=== PATIENT | male | born 1955 | race Caucasian/White ===

== ENCOUNTER → 2020-02-01 11:43 | Outpatient (BNVA) | payer MEDICARE, OTHER, SELFPAY | PROVIDERS: Family Provider Family Medicine; PCP Family Medicine; Visit Provider Family Medicine | DX: I10 Essential (primary) hypertension (principal); E78.5 Hyperlipidemia, unspecified; E11.9 Type 2 diabetes mellitus without complications | CPT/HCPCS: 80053; 80061; 82043; 83036; 84443; 85025 ==

== ENCOUNTER → 2020-05-30 09:13 | Outpatient (BNVA) | payer MEDICARE, OTHER, SELFPAY | PROVIDERS: Family Provider Family Medicine; PCP Family Medicine; Visit Provider Family Medicine | DX: E11.9 Type 2 diabetes mellitus without complications (principal); N18.2 Chronic kidney disease, stage 2 (mild); I10 Essential (primary) hypertension; F17.229 Nicotine dependence, chewing tobacco, with unspecified nicotine-induced disorders | CPT/HCPCS: 80048; 83036 ==

== ENCOUNTER → 2020-12-29 11:41 | Outpatient (BNVA) | payer MEDICARE, OTHER, SELFPAY | PROVIDERS: Family Provider Family Medicine; PCP Family Medicine; Visit Provider Family Medicine | DX: I10 Essential (primary) hypertension (principal); E11.9 Type 2 diabetes mellitus without complications; E78.5 Hyperlipidemia, unspecified; N40.1 Benign prostatic hyperplasia with lower urinary tract symptoms; R35.0 Frequency of micturition; E03.9 Hypothyroidism, unspecified; K40.90 Unilateral inguinal hernia, without obstruction or gangrene, not specified as recurrent | CPT/HCPCS: 80053; 80061; 82043; 83036; 84153; 84443; 85025 ==

== ENCOUNTER → 2021-01-31 08:48 | Outpatient (BNVA) | payer MEDICARE, OTHER, SELFPAY | PROVIDERS: Family Provider Family Medicine; PCP Family Medicine; Visit Provider Urology | DX: N40.1 Benign prostatic hyperplasia with lower urinary tract symptoms (principal); R97.20 Elevated prostate specific antigen [PSA]; R35.0 Frequency of micturition; K40.90 Unilateral inguinal hernia, without obstruction or gangrene, not specified as recurrent | CPT/HCPCS: 81003; 84153 ==

== ENCOUNTER → 2021-02-09 10:38 | Outpatient (BNVA) | payer MEDICARE, OTHER, SELFPAY | PROVIDERS: Family Provider Family Medicine; PCP Family Medicine; Visit Provider Surgery | DX: Z20.822 Contact with and (suspected) exposure to COVID-19 (principal) | CPT/HCPCS: 87635 ==

== ENCOUNTER 2021-02-14 08:15 | Day surgery (SDC) | payer MEDICARE, OTHER, SELFPAY ==
[2021-02-13 09:27] VITALS: BMI 29.3
--- NOTE | 2021-02-14 08:38 | W.PM.OPSFHP ---
Same Day Surgery H&P Indication for Procedure/HPI DATE OF PROCEDURE: February 14, 2021 CHIEF COMPLAINT/INDICATIONFOR SURGICAL PROCEDURE: left inguinal hernia repair PREOP DIAGNOSIS: left inguinal hernia PLANNED PROCEDRUE: Operation Date: 02/14/21 09:35 Proposed Procedures p Laparoscopic poss Open Inguinal Hernia Repair 98141 K40.90(Left) - Jc Samuel MD s Open Umbilical Hernia Repair 42650 K42.0(Not Applicable) - Jc Samuel MD Medications/Allergies* Allergies/Adverse Reactions Allergy/AdvReac Type Severity Reaction Status Date / Time No Known Allergies Allergy Verified 02/13/21 09:23 Pertinent History/Comorbid Conditions* Medical History (Updated 01/31/21 @ 09:38 by Gale Medina APRN) Dyslipidemia Elevated PSA Essential hypertension Hypothyroid Type 2 diabetes mellitus, without long-term current use of insulin Surgical History (Updated 01/16/21 @ 11:23 by Jc Samuel MD) H/O hemorrhoidectomy History of colonoscopy Family History (Updated 02/01/20 @ 11:25 by Starr Hernandez LPN) Diabetes Hypertension Social History Alcohol intake: never Marital status: Current occupational status: employed Current occupation: SELF EMPLOYED Pertinent Exam Findings alert, oriented x 3 and regular rate & rhythm Recommendations Surgery/Procedure today Coding Level of Care Code Acute Biomedical Engineering Director for Manuel Lantigua
[2021-02-14 08:40] VITALS: BP 134/88; PULSE 56; RESP 16; TEMP 36.4; O2SAT 100
[2021-02-14] MEDS: sodium chloride 0.9% 1,000 ML 30 ML IV (09:12)
[2021-02-14 09:17] LABS: Glucose Point of Care 113 mg/dL (70-110)
--- NOTE | 2021-02-14 09:19 | ANES.PREANE2 ---
Pre-Anesthetic Assessment Pre-Anesthetic Assessment: Height/Weight: Height 1.68 m Weight 82.554 kg Temp Pulse Resp BP Pulse Ox 97.6 F 56 L 16 134/88 100 02/14/21 08:40 02/14/21 08:40 02/14/21 08:40 02/14/21 08:40 02/14/21 08:40 Preop Diagnosis: Left inguinal hernia, umbilical hernia Proposed Procedure: Operation Date: 02/14/21 09:35 Proposed Procedures p Laparoscopic poss Open Inguinal Hernia Repair 28729 K40.90(Left) - Jc Samuel MD s Open Umbilical Hernia Repair 71506 K42.0(Not Applicable) - Jc Samuel MD Was Beta Jared taken within 24 hours: N/A Was Clonidine taken within 24 hours: N/A Last intake: Intake Last Liquid Date 02/13/21 Last Liquid Time 22:00 Last Solid Date 02/13/21 Last Solid Time 22:00 Social: Social History: Tobacco (Chews) and No alcohol Exam: Pre-Anes Outpt Exam: alert, oriented x 3, clear to auscultation bilaterally and regular rate & rhythm Airway: Submandibular: WNL Cervical ROM: WNL MP: 2 Dentition: Chipped CV/HEM: CV/HEM: HTN : : Chronic renal Insufficiency Metabolic: Metabolic: Hyperlipidemia and Thyroid Anesthetic Plan: ASA status: 3 Anesthesia: General Risk of > 500 ml blood loss (7ml/kg in children): No Meds/Allergies Current Medications: Current Medications Generic Name Dose Route Start Last Admin Trade Name Freq PRN Reason Stop Dose Admin Sodium Chloride 1,000 mls @ 30 ml s/hr 02/14/21 08:45 02/14/21 09:12 Sodium Chloride 0.9% IV 02/15/21 08:44 30 mls/hr .Q24H GARY Administration PFSH Anesthesia PFSH: Medical History Dyslipidemia Elevated PSA Essential hypertension Hypothyroid Type 2 diabetes mellitus, without long-term current use of insulin Surgical History H/O hemorrhoidectomy History of colonoscopy Family History Other Diabetes Hypertension Social History Alcohol intake: never Marital status: Current occupational status: employed Current occupation: SELF EMPLOYED Data Anesthesia Other Labs: Laboratory Results - last 48 hr 02/14/21 08:58 POC Glucose 113 H Cardiac Studies: No Data to Display
--- NOTE | 2021-02-14 10:48 | PM.OP ---
Operative Report Date of procedure: February 14, 2021 Pre-op Diagnosis: Left inguinal hernia, umbilical hernia Post-op Diagnosis: 1. Incarcerated indirect left inguinal hernia 2. Incarcerated umbilical hernia Procedure Done: 1. Open primary repair of umbilical hernia 2. Laparoscopic total extraperitoneal repair of indirect left inguinal hernia with Surgimax 3D mesh Pathology: none sent Surgeon: Jc Samuel Anesthesia: General Condition: stable Disposition: PACU Procedure: The patient was taken to the operating room. After IV antibiotic was administered, the abdomen was prepped and draped in a sterile manner. Using a 15 blade, a 1.0 cm transverse incision was made infraumbilically on the left side. Subcutaneous tissue was divided using electrocautery and the anterior rectus sheath divided using an 11 blade. The rectus muscle was retracted laterally and the extraperitoneal space identified. A 11 mm port was placed and 12 mm of pneumoperitoneum was created. A 10 mm 30? scope was introduced and the retrorectus space was opened using the camera up to the pubic symphysis and 5 mm ports were placed in the midline, one 2-fingerbreadths above the pubic symphysis and the other midway between these two ports under direct visualization. Blunt dissection was carried out to open up the tissue in the midline and to the pubic symphysis, which was identified. The dissection was then carried laterally where the iliopubic tract was identified. There was no femoral, obturator or direct hernia noted. The inferior epigastric artery was identified and dissection was carried posterior to it and laterally, the space was opened up to the level of the umbilicus superior to the anterior superior iliac spine. I then proceeded to dissect out the spermatic cord and the large indirect hernial sac was reduced . 15 x 10cm Surgimax 3D mesh was rolled and introduced through the 10 mm port and then rolled laterally and apposed well against the abdominal wall to cover the myopectineal orifice completely. 10 Cc of 0.5% Marcaine was infiltrated into the preperitoneal space. The extraperitoneal space was desufflated under direct visualization to ensure no slippage of hernial sac under the mesh. All ports were removed. Through the existing incision inferior to the umbilicus, hernial sac dissected out using electrocautery and hemostats. The hernial sac was opened and omentum was reduced into the peritoneal cavity. Interrupted sutures using 0 Vicryl was used to close the hernial defect without any tension. The anterior rectus fascia at the infraumbilical port closed using figure of eight 0 Vicryl sutures, subcutaneous tissue approximated using 3-0 Vicryl sutures and skin at all three port sites were closed using running subcuticular 4-0 Monocryl sutures and Dermabond. 10 mL of 0.5% Marcaine was infiltrated at the port sites. The patient was stable throughout the procedure.
[2021-02-14 10:58] VITALS: BP 136/86; PULSE 84; RESP 18; TEMP 36.4; O2SAT 97
[2021-02-14 11:05] VITALS: BP 128/68; PULSE 74; RESP 18; O2SAT 96
[2021-02-14 11:10] VITALS: BP 111/81; PULSE 62; RESP 16; TEMP 36.4; O2SAT 98
[2021-02-14 11:22] LABS: Glucose Point of Care 138 mg/dL (70-110)
[2021-02-14 11:23] VITALS: BP 118/72; PULSE 63; RESP 14; TEMP 36.4; O2SAT 99
[2021-02-14 12:02] VITALS: BP 131/81; PULSE 56; RESP 16; TEMP 36.6; O2SAT 99
[2021-02-14] MEDS: HYDROcodone-acetaminophen 5-325 mg Tablet 1 TAB PO (12:04)
--- NOTE | 2021-02-14 15:41 | ANE.PACU2 ---
Inpatient post-anesthesia follow up: Airway intact: Yes Vital signs: Temperature 97.8 F Pulse Rate 56 Respiratory Rate 16 Blood Pressure 131/81 Pulse Oximetry 99 Oxygen Delivery Me thod Room Air Oxygen Flow Rate 8 Fraction of Inspir ed Oxygen Hydration adequate: Yes Nausea and vomiting: No Pain level: 2 Mental status: Baseline
== END 2021-02-14 12:05 | disposition home or self-care (01) ==
PROVIDERS: PCP Family Medicine; Visit Provider Surgery
PROC: (CPT 49650; principal; 2021-02-14 09:25)
PROC: (CPT 49587; 2021-02-14 09:25)
DX: K40.30 Unilateral inguinal hernia, with obstruction, without gangrene, not specified as recurrent (principal); K42.0 Umbilical hernia with obstruction, without gangrene; E78.5 Hyperlipidemia, unspecified; I10 Essential (primary) hypertension; E03.9 Hypothyroidism, unspecified; E11.9 Type 2 diabetes mellitus without complications; Z82.49 Family history of ischemic heart disease and other diseases of the circulatory system; Z83.3 Family history of diabetes mellitus
CPT/HCPCS: 49587; 49650; 36416; 82962; C1781; J0690; J1100; J1170; J2405; J2704; J2710; J3010; J3490; J7030

== ENCOUNTER 2021-02-15 14:28 | Emergency (ER) | payer MEDICARE, OTHER, SELFPAY ==
[2021-02-15 14:54] VITALS: BP 137/70; PULSE 63; RESP 18; TEMP 36.8; O2SAT 96; BMI 28.1
--- NOTE | 2021-02-15 15:57 | W.ED.MALEGU ---
HPI - Male Genitourinary General: Chief complaint: Urogenital-Male Stated complaint: petra coronado, post op Time Seen by Provider: 02/15/21 15:54 History of Present Illness: HPI Narrative: Patient is having difficulty urinating. Had hernia surgery yesterday. Said he is can only dribble slightly when he tries urinate. Has history of prostate problems. Denies fever chills nausea vomiting or abdominal pain. MD Complaint: dysuria Onset (ago): hour(s) Duration: constant and progressively worsening Severity: moderate Severity scale (1-10): 6 Quality: aching Relieving factors: none Exacerbating factors: movement Associated symptoms: Reports no associated symptoms; Deny nausea or vomiting Review of Systems Const: Denies: fever(s), chills or body aches Eyes: Denies: change in vision or blurry vision ENMT: Denies: throat pain or nasal congestion Card: Denies: chest pain or dyspnea on exertion Resp: Denies: dyspnea, productive cough or non-productive cough GI: Denies: abdominal pain, nausea or vomiting : Reports: difficulty urinating Musc: Denies: extremity pain Skin/Breast: Denies: rash Neuro: Denies: headache(s) Psych: Denies: anxiety or depression Santy/Lymph: Denies: easy bruising PFSH ED PFSH: Medical History (Updated 02/15/21 @ 16:31 by RERE Gil) Dyslipidemia Elevated PSA Essential hypertension Hypothyroid Type 2 diabetes mellitus, without long-term current use of insulin Surgical History (Updated 02/15/21 @ 16:31 by RERE Gil) H/O hemorrhoidectomy History of colonoscopy History of umbilical hernia repair (02/14/21) Status post left inguinal hernia repair (02/14/21) Family History Other Diabetes Hypertension Social History Alcohol intake: never Marital status: Current occupational status: employed Current occupation: SELF EMPLOYED Physical Exam Const: GENERAL APPEARANCE: cooperative GI: PALPATION: Yes Bladder palpation abnormal : BLADDER/KIDNEY EXAM: Yes Bladder palpation abnormal Bladder abnormal details: tender Psych: COMMON NORMALS: mental status grossly normal Course Vital Signs: Vital signs: Vital Signs Temperature 98.2 F 02/15/21 14:54 Pulse Rate 63 02/15/21 14:54 Respiratory Rate 18 02/15/21 14:54 Blood Pressure 137/70 02/15/21 14:54 Pulse Oximetry 96 02/15/21 14:54 MDM - Male MDM Narrative: Medical decision making narrative: Patient encouraged to follow-up with PCP to get catheter removed. Daughter in the room said that she can remove the catheter on Friday she is [employer] ATTENDANT and remove catheters. She said she will probably do it. Encourage at least leave until Friday or Friday and follow-up P CP as soon as possible. Lab Data: Labs: Lab Results 02/15/21 Range/Units 16:21 Urine Color Yellow (Yellow) Urine Appearance Clear (CLEAR) Urine pH 5 (5-7) Ur Specific Gravit y 1.020 (1.005-1.030) Urine Protein Neg (Negative) Urine Glucose (UA) 2+ (Normal) Urine Ketones Negative (Negative) Urine Blood 2+ H (Negative) Urine Nitrate Negative (Negative) Urine Bilirubin Neg (Negative) Urine Urobilinogen Neg (Negative) mg/dL Ur Leukocyte Pili ase Negative (Negative) Urine RBC 0-4 H (0-2) /hpf Urine WBC None (0-5) /hpf Ur Squamous Epith Cells None (0-5) /hpf Amorphous Sediment Not Reportable Urine Bacteria Trace (NONE) /hpf Discharge Plan Discharge Patient Disposition: Home Clinical Impression: Acute urinary retention, Status post left inguinal hernia repair Condition: Stable Prescriptions: No Action levothyroxine 50 mcg capsule 50 mcg PO DAILY Qty: 90 RF: 1 metformin 500 mg tablet 500 mg PO BID Qty: 180 RF: 1 tamsulosin 0.4 mg capsule 0.4 mg PO DAILY Qty: 90 RF: 1 Januvia 50 mg tablet 50 mg PO DAILY Qty: 90 RF: 1 lisinopril 20 mg tablet 20 mg PO DAILY Qty: 90 RF: 1 ondansetron HCl [Zofran] 4 mg tablet 4 mg PO Q6H PRN (Reason: nausea and vomiting) Qty: 20 RF: 0 docusate sodium [Colace] 100 mg capsule 100 mg PO BID Qty: 30 RF: 0 hydrocodone-acetaminophen 5-325 mg tablet 1 tab PO Q6H PRN (Reason: pain) Qty: 20 RF: 0 simvastatin 40 mg tablet 40 mg PO BEDTIME RF: 0 Discharge Orders: Discharge ED (Routine); Ordered 02/15/21 Ordered By: Ulices Castillo Referrals: Jennifer Farrell DO [Primary Care Provider] - Discharge Diet: Usual diet Discharge Activity: Resume usual activity Patient Instructions: Urinary Retention in Men (ED), Nash Catheter Placement and Care (ED) Activity Restrictions/Additional Instructions: Follow instructions and Nash catheter care. Follow-up your primary care provider Friday for possible removal catheter. Can return the ER or follow-up with your surgeon for any significant problems develop. Coding Level of Care Code ED Machine Accountant for Manuel Fwd Exam Expanded Problem Focused
[2021-02-15 16:54] LABS: Urine Appearance Clear (CLEAR); Urine Color Yellow (Yellow); pH Urine 5 (5-7)
[2021-02-15 16:55] LABS: Add Urine Microscopic? YES; Bilirubin Urine Neg (Negative); Blood Urine 2+ (Negative); Glucose Urine UA 2+ (Normal); Ketones Urine Negative (Negative); Leukocyte Esterase Urine Negative (Negative); Nitrate Urine Negative (Negative); Protein Urine Neg (Negative); Urobilinogen Urine Neg (Negative)
[2021-02-15 16:56] LABS: Add Urine Culture? No; Bacteria Urine TRACE /hpf; RBC Urine 0-4 /hpf (0-2)
== END 2021-02-15 17:29 | disposition home or self-care (01) ==
PROVIDERS: Emergency Provider Nurse Practitioner Family; PCP Family Medicine
DX: R33.8 Other retention of urine (principal); E78.5 Hyperlipidemia, unspecified; I10 Essential (primary) hypertension; E03.9 Hypothyroidism, unspecified; E11.9 Type 2 diabetes mellitus without complications; Z98.890 Other specified postprocedural states; Z79.84 Long term (current) use of oral hypoglycemic drugs
CPT/HCPCS: 51702; 81001; 99283

== ENCOUNTER 2021-02-19 19:21 | Emergency (ER) | payer MEDICARE, SELFPAY ==
[2021-02-19 19:26] VITALS: BP 150/77; PULSE 95; RESP 18; TEMP 36.7; O2SAT 98; BMI 28.1
--- NOTE | 2021-02-19 19:40 | W.ED.MALEGU ---
HPI - Male Genitourinary General: Chief complaint: Urogenital-Male Stated complaint: Urinary Retention Time Seen by Provider: 02/19/21 19:31 Source: patient Mode of arrival: ambulatory Limitations: no limitations History of Present Illness: HPI Narrative: 65-year-old male who had surgery on the of large prostate and urinary retention. He was seen here and had a Caal placed for urinary retention.. His daughter states she remove the Caal yesterday and he still has not been able to urinate since then. He denies able to urinate Caal states he just has a dribble and lower abdominal pain. He rates his pain a 7 out of 10. He had not followed up with anyone when he was seen last. Denies any worsening improving factors. Associated symptoms: Deny nausea or vomiting Review of Systems Const: Denies: fever(s), chills, body aches or change in appetite Eyes: Denies: blurry vision or eye discomfort ENMT: Denies: throat pain or dental pain Card: Denies: chest pain Resp: Denies: dyspnea GI: Denies: abdominal pain, nausea, vomiting or diarrhea : Reports: difficulty urinating Musc: Denies: neck pain or back pain Skin/Breast: Denies: rash Neuro: Denies: headache(s) Psych: Denies: depression Santy/Lymph: Denies: easy bruising All/Imm: Denies: urticaria PFSH ED PFSH: Medical History (Updated 02/19/21 @ 20:11 by Farzana Perez MD) Dyslipidemia Elevated PSA Essential hypertension Hypothyroid Type 2 diabetes mellitus, without long-term current use of insulin Surgical History (Updated 02/15/21 @ 16:31 by RERE Gil) H/O hemorrhoidectomy History of colonoscopy History of umbilical hernia repair (02/14/21) Status post left inguinal hernia repair (02/14/21) Family History Other Diabetes Hypertension Social History Alcohol intake: never Marital status: Current occupational status: employed Current occupation: SELF EMPLOYED Physical Exam Const: COMMON NORMALS: no acute distress, patient oriented x3 and healthy appearing HENMT: COMMON NORMALS: normocephalic and atraumatic HEAD & SCALP: normocephalic and atraumatic Eye: COMMON NORMALS: Equal, round and reactive pupils present and EOMs intact bilaterally PUPIL: Yes Equal, round and reactive pupils present Neck/C-Spine: COMMON NORMALS: full ROM and supple Chest: COMMONS NORMALS: normal inspection of the chest and normal palpation of entire chest wall Resp: COMMON NORMALS: normal respiratory effort, No retractions, No use of accessory muscles and clear to auscultation bilaterally AUSCULTATION: clear to auscultation bilaterally Cardio: COMMON NORMALS: regular rate, regular rhythm and No murmurs present (Cardio) RATE: regular rate RHYTHM: regular rhythm GI: COMMON NORMALS: Normal to inspection, nondistended, normoactive bowel sounds present, Soft to palpation, non-tender and no masses PALPATION: Yes Soft to palpation Extremity: COMMON NORMALS: normal to inspection and full ROM Neuro: COMMON NORMALS: patient oriented x3, moves all extremities and no focal motor deficits Psych: COMMON NORMALS: mental status grossly normal, Normal thought process present and cooperative THOUGHT PROCESS: Normal thought process present Skin: COMMON NORMALS: no rashes or lesions noted and no wounds GENERAL SKIN EXAM: no rashes or lesions noted Course Vital Signs: Vital signs: Vital Signs Temperature 98.1 F 02/19/21 19:26 Pulse Rate 75 02/19/21 20:10 Respiratory Rate 13 02/19/21 20:10 Blood Pressure 150/77 02/19/21 19:26 Pulse Oximetry 14 L 02/19/21 20:10 MDM - Male [facility] Narrative: Medical decision making narrative: pt presents here with urinary retention. he had a caal placed and feels much improved. He is stable for discharge and is to follow up with dr. sood. Discharge Plan Discharge Patient Disposition: Home Clinical Impression: Acute urinary retention Condition: Stable Prescriptions: No Action levothyroxine 50 mcg capsule 50 mcg PO DAILY Qty: 90 RF: 1 metformin 500 mg tablet 500 mg PO BID Qty: 180 RF: 1 tamsulosin 0.4 mg capsule 0.4 mg PO DAILY Qty: 90 RF: 1 Januvia 50 mg tablet 50 mg PO DAILY Qty: 90 RF: 1 lisinopril 20 mg tablet 20 mg PO DAILY Qty: 90 RF: 1 ondansetron HCl [Zofran] 4 mg tablet 4 mg PO Q6H PRN (Reason: nausea and vomiting) Qty: 20 RF: 0 docusate sodium [Colace] 100 mg capsule 100 mg PO BID Qty: 30 RF: 0 hydrocodone-acetaminophen 5-325 mg tablet 1 tab PO Q6H PRN (Reason: pain) Qty: 20 RF: 0 simvastatin 40 mg tablet 40 mg PO BEDTIME RF: 0 Discharge Orders: Discharge ED (Routine); Ordered 02/19/21 Ordered By: Farzana Perez Referrals: Wilfrid Sood MD [Physician] - 1-3 days Jennifer Farrell DO [Primary Care Provider] - 1-3 days Discharge Diet: Advance as tolerated Discharge Activity: Resume usual activity Patient Instructions: Urinary Retention in Men (ED), Urinary Leg Bag (GEN) Coding Level of Care Code ED Hand Molder And Caster for Chg Fwd Exam Comprehensive
--- NOTE | 2021-02-19 20:09 | PC.NURSE ---
attempted catheter at this time. not successful. called hothouse worker for coude catheter.
[2021-02-19 20:10] VITALS: PULSE 75; RESP 13; O2SAT 14
[2021-02-19 21:23] VITALS: BP 145/78; PULSE 80; RESP 16; O2SAT 98
--- NOTE | 2021-02-20 09:25 | DCPLANNER ---
industrial engineering manager had message to schedule a follow up appointment for patient with Dr. Menjivar. industrial engineering manager called the office of Dr. Menjivar, spoke with Julio C, gave clinic patients information. industrial engineering manager was told that patients information would be printed and reviewed. Clinic will call patient with appointment information.
--- NOTE | 2021-02-21 14:23 | DCPLANNER ---
Patient has a follow up appointment scheduled for Saturday, March 06, [address] at 4:[address] Menjivar. Clinic will call patient with appointment information.
--- NOTE | 2021-03-07 13:43 | DCPLANNER ---
Patient had a follow up appointment scheduled for 03.06.[address] Menjivar - patient did attend appointment.
== END 2021-02-19 21:30 | disposition home or self-care (01) ==
PROVIDERS: Emergency Provider Emergency Medicine; PCP Family Medicine
DX: R33.9 Retention of urine, unspecified (principal); Z79.84 Long term (current) use of oral hypoglycemic drugs; E78.5 Hyperlipidemia, unspecified; I10 Essential (primary) hypertension; E11.9 Type 2 diabetes mellitus without complications
CPT/HCPCS: 51702; 99283

== ENCOUNTER → 2021-06-26 10:26 | Outpatient (BNVA) | payer MEDICARE, OTHER, SELFPAY | PROVIDERS: PCP Family Medicine; Visit Provider Family Medicine | DX: E03.9 Hypothyroidism, unspecified (principal); E78.5 Hyperlipidemia, unspecified; E11.9 Type 2 diabetes mellitus without complications; I10 Essential (primary) hypertension | CPT/HCPCS: 80053; 80061; 83036; 84443; 85025 ==

== ENCOUNTER → 2022-01-09 10:45 | Outpatient (BNVA) | payer MEDICARE, SELFPAY | PROVIDERS: PCP Family Medicine; Visit Provider Family Medicine | DX: E11.9 Type 2 diabetes mellitus without complications (principal); E78.5 Hyperlipidemia, unspecified; R97.20 Elevated prostate specific antigen [PSA]; E03.9 Hypothyroidism, unspecified | CPT/HCPCS: 80053; 80061; 83036; 84153; 84443 ==

== ENCOUNTER → 2022-10-01 12:09 | Outpatient (BNVA) | payer MEDICARE, SELFPAY | PROVIDERS: PCP Family Medicine; Visit Provider Family Medicine | DX: I10 Essential (primary) hypertension (principal); E78.5 Hyperlipidemia, unspecified; E11.9 Type 2 diabetes mellitus without complications; E03.9 Hypothyroidism, unspecified | CPT/HCPCS: 80053; 80061; 82043; 83036; 84443; 85025 ==

== ENCOUNTER → 2023-05-16 08:56 | Outpatient (BNVA) | payer MEDICARE, OTHER, SELFPAY | PROVIDERS: PCP Family Medicine; Visit Provider Family Medicine | DX: E11.9 Type 2 diabetes mellitus without complications (principal); Z12.5 Encounter for screening for malignant neoplasm of prostate; E03.9 Hypothyroidism, unspecified; N40.1 Benign prostatic hyperplasia with lower urinary tract symptoms | CPT/HCPCS: 80053; 80061; 82043; 83036; 84443; G0103 ==

== ENCOUNTER → 2023-11-10 10:17 | Outpatient (BNVA) | payer MEDICARE, OTHER, SELFPAY | PROVIDERS: PCP Family Medicine; Visit Provider Family Medicine | DX: E11.9 Type 2 diabetes mellitus without complications (principal); Z13.6 Encounter for screening for cardiovascular disorders; N40.1 Benign prostatic hyperplasia with lower urinary tract symptoms; R35.0 Frequency of micturition; E03.9 Hypothyroidism, unspecified; I10 Essential (primary) hypertension; R06.09 Other forms of dyspnea | CPT/HCPCS: 80053; 80061; 83036; 84443; 93005 ==

== ENCOUNTER → 2024-09-28 15:27 | Outpatient (BNVA) | payer MEDICARE, OTHER, SELFPAY | PROVIDERS: PCP Family Medicine; Visit Provider Family Medicine | DX: E11.9 Type 2 diabetes mellitus without complications (principal) | CPT/HCPCS: 80053; 80061; 82043; 83036; 84443; 85025 ==

== ENCOUNTER → 2025-03-04 11:04 | Outpatient (BNVA) | payer MEDICARE, OTHER, SELFPAY | PROVIDERS: PCP Family Medicine; Visit Provider Family Medicine | DX: E53.8 Deficiency of other specified B group vitamins (principal); R41.82 Altered mental status, unspecified; E87.5 Hyperkalemia; R33.8 Other retention of urine; E03.9 Hypothyroidism, unspecified; R35.1 Nocturia; N40.1 Benign prostatic hyperplasia with lower urinary tract symptoms; E11.9 Type 2 diabetes mellitus without complications | CPT/HCPCS: 80053; 81000; 82607; 83036; 84153; 84439; 84443 ==

== ENCOUNTER 2025-03-21 11:06 | Outpatient (CLI) | payer MEDICARE, OTHER, SELFPAY ==
--- NOTE | 2025-03-21 11:15 | US_ITS ---
WS: [id number] RENAL ULTRASOUND HISTORY: CKD COMPARISON: None available. TECHNIQUE: 2-D and color Doppler imaging of the kidney submitted. Right kidney: 11.7 cm x 6.7 cm x 7.0 cm. Cortex: 1.0 cm Normal echogenicity with no hydronephrosis or mass. Left kidney: 11.4 cm x 5.9 cm x 5.6 cm. Cortex: 1.0 cm Normal echogenicity with no hydronephrosis or mass. Aorta: Normal. Urinary Bladder: Partially distended urinary bladder. Mild diffuse wall thickening is probably due to outlet obstruction. Prostate gland is enlarged and heterogeneous encroaching into the urinary bladder. Prostate measures 4.1 x 3.4 x 7.7 cm. US/US renal BI* [id number] IMPRESSION: 1. Normal size kidneys with no obstruction. No solid mass. 2. Prostate gland is enlarged and heterogeneous.
== END 2025-03-21 11:07 | disposition home or self-care (01) ==
LOC: RAD 11:08
PROVIDERS: PCP Family Medicine; Visit Provider Family Medicine
DX: E11.22 Type 2 diabetes mellitus with diabetic chronic kidney disease (principal); N18.32 Chronic kidney disease, stage 3b; N40.0 Benign prostatic hyperplasia without lower urinary tract symptoms
CPT/HCPCS: 76770

== ENCOUNTER → 2025-03-28 10:51 | Outpatient (BNVA) | payer MEDICARE, OTHER, SELFPAY | PROVIDERS: PCP Family Medicine; Visit Provider Family Medicine | DX: N18.32 Chronic kidney disease, stage 3b (principal) | CPT/HCPCS: 80048 ==

== ENCOUNTER → 2025-05-27 11:38 | Outpatient (BNVA) | payer MEDICARE, OTHER, SELFPAY | PROVIDERS: PCP Family Medicine; Visit Provider Family Medicine | DX: E11.22 Type 2 diabetes mellitus with diabetic chronic kidney disease (principal); N18.32 Chronic kidney disease, stage 3b; I12.9 Hypertensive chronic kidney disease with stage 1 through stage 4 chronic kidney disease, or unspecified chronic kidney disease | CPT/HCPCS: 80053; 83036 ==

== ENCOUNTER 2025-06-05 13:49 | Emergency (ER) | payer MEDICARE, OTHER, SELFPAY ==
[2025-06-05] VITALS (9 sets, daily range): BP systolic 87–125; BP diastolic 62–81; PULSE 78–95; RESP 16–21; TEMP 36.8; O2SAT 94–98
--- NOTE | 2025-06-05 14:28 | W.ED.GENADLT ---
HPI - General Adult General: Chief complaint: General Medical Stated complaint: blood blisters inside his mouth Time Seen by Provider: 06/05/25 14:24 Source: patient Mode of arrival: ambulatory Limitations: no limitations History of Present Illness: 69-year-old male who states that he started having a fine rash to his lower legs this morning also had some bleeding in his mouth. Patient has no history of bleeding disorders not on any blood thinners denies any history of low platelets. He denies any pain denies any recent illness Associated symptoms: Reports rash Related Data Home Medications ?Medication ?Instructions ?Recorded ?Confirmed levothyroxine 50 mcg tablet 50 mcg PO DAILY 06/05/25 06/05/25 simvastatin 40 mg tablet 40 mg PO BEDTIME 06/05/25 06/05/25 Previous Rx's ?Medication ?Instructions ?Recorded acetaminophen 325 mg tablet 650 mg (2 x 325 mg) PO QID PRN 10/08/22 (Tylenol) pain #240 tabs tamsulosin 0.4 mg capsule 0.4 mg PO DAILY 90 days #90 caps 03/28/25 blood sugar diagnostic (Blood #60 ea 05/03/25 Glucose Test strips) blood-glucose meter #1 ea 05/03/25 lancets 25 gauge #100 ea 05/03/25 empagliflozin 25 mg tablet 25 mg PO DAILY #90 tabs 05/27/25 (Jardiance) lisinopril 10 mg tablet 10 mg PO DAILY #90 tabs 05/27/25 semaglutide 1 mg/dose (4 mg/3 mL) 1 mg (0.75 mL) SUBCUT .weekly #3 mL 05/27/25 subcutaneous pen injector (Ozempic) Allergies Allergy/AdvReac Type Severity Reaction Status Date / Time No Known Allergies Allergy Verified 06/05/25 14:06 Review of Systems Skin/Breast: Reports: rash PFSH ED PFSH: Medical History Elevated PSA Acquired hypothyroidism Type 2 diabetes mellitus with stage 3b chronic kidney disease, without long-term current use of insulin Dyslipidemia Essential hypertension Surgical History History of umbilical hernia repair (02/14/21) Status post left inguinal hernia repair (02/14/21) History of colonoscopy H/O hemorrhoidectomy Family History Other Diabetes Hypertension Social History Smoking and tobacco/nicotine status: never used tobacco/nicotine Alcohol intake: never Substance/Drug Use: never Marital status: Current occupational status: employed Current occupation: SELF EMPLOYED Physical Exam Const: COMMON NORMALS: patient oriented x3 HENMT: COMMON NORMALS: normocephalic and atraumatic HEAD & SCALP: normocephalic and atraumatic OTHER: Bleeding around gumline Neck/C-Spine: COMMON NORMALS: full ROM and supple Chest: COMMONS NORMALS: normal inspection of the chest Resp: COMMON NORMALS: normal respiratory effort Cardio: COMMON NORMALS: regular rate, regular rhythm and No murmurs present (Cardio) RATE: regular rate RHYTHM: regular rhythm Extremity: COMMON NORMALS: full ROM Neuro: COMMON NORMALS: patient oriented x3, moves all extremities and no focal motor deficits Psych: COMMON NORMALS: mental status grossly normal, Normal thought process present and cooperative THOUGHT PROCESS: Normal thought process present Skin: COMMON NORMALS: no wounds NARRATIVE SKIN EXAM: Petechial rash to lower legs Course Vital Signs: Vital signs: Vital Signs Temperature 98.2 F 06/05/25 14:01 Pulse Rate 90 06/05/25 16:00 Respiratory Rate 16 06/05/25 14:01 Blood Pressure 115/62 06/05/25 16:00 Pulse Oximetry 96 06/05/25 16:00 Oxygen Delivery Me thod Room Air 06/05/25 16:00 MDM - General Adult Medical Decision Making Patient presents here with bleeding from gums along with rash lower legs he is found to be thrombocytopenic with platelet count of 1. 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 His vitals here been normal. Hemoglobin is normal. We do not have platelets here will transfer to [facility] patient excepted by Dr. Gross for high-level care for hematology. critical care time 35 minutes The high probability of a clinically significant, sudden or life threatening deterioration of the patient's hematology system(s) required my full and direct attention, intervention and personal management. The critical care time is as shown. This time is in addition to time spent performing any reported procedures but includes the following: [x] Data and vital sign review and interpretation [x] Patient assessment, examination and intervention [x] Documentation [x] Medication orders and management Medical Records I reviewed the patient's medical records. Lab Data I reviewed the patient's lab results. 06/05/25 14:43 06/05/25 14:43 Laboratory Results WBC 9.06 10^3/uL (3.29-11.43) 06/05/25 14:43 RBC 4.63 10^6/uL (3.85-5.65) 06/05/25 14:43 Hgb 14.80 g/dL (11.27-16.99) 06/05/25 14:43 Hct 42.5 % (37-53) 06/05/25 14:43 MCV 91.8 fl (82-101) 06/05/25 14:43 MCH 32.0 pg (27-33) 06/05/25 14:43 MCHC 34.8 g/dL (30-55) 06/05/25 14:43 RDW 11.5 % (12.1-15.1) L 06/05/25 14:43 Plt Count 1 10^3/cmm (157-399) L* 06/05/25 14:43 MPV Not Reportable 06/05/25 14:43 Neut % (Auto) 72.1 % 06/05/25 14:43 Lymph % (Auto) 18.5 % 06/05/25 14:43 [place] % (Auto) 7.8 % 06/05/25 14:43 Eos % (Auto) 0.8 % 06/05/25 14:43 Baso % (Auto) 0.6 % 06/05/25 14:43 Neut # (Auto) 6.53 10^3/uL (1.8-7.7) 06/05/25 14:43 Lymph # (Auto) 1.7 10^3/uL (0.8-4.8) 06/05/25 14:43 [place] # (Auto) 0.7 10^3/uL (0.2-0.9) 06/05/25 14:43 Eos # (Auto) 0.1 10^3/uL (0.0-0.8) 06/05/25 14:43 Baso # (Auto) 0.1 10^3/uL (0.0-0.1) 06/05/25 14:43 Nucleated RBC % (auto) 0 % 06/05/25 14:43 Nucleated RBCs # 0.0 /100WBC 06/05/25 14:43 PT 12.70 SECONDS (12.1-14.9) 06/05/25 14:43 INR 0.89 (0.8-1.2) 06/05/25 14:43 Sodium 134 mmol/L (136-145) L 06/05/25 14:43 Potassium 4.3 mmol/L (3.5-5.1) 06/05/25 14:43 Chloride 101 mmol/L (98-107) 06/05/25 14:43 Carbon Dioxide 19 mmol/L (22-29) L 06/05/25 14:43 Anion Gap 18.3 (5-19) 06/05/25 14:43 BUN 40 mg/dL (8-23) H 06/05/25 14:43 Creatinine 1.6 mg/dL (0.7-1.2) H 06/05/25 14:43 GFR Calculation Not Reportable 06/05/25 14:43 Glucose 179 mg/dL (65-115) H 06/05/25 14:43 Calculated Osmolality 292 mOsm/kg (285-295) 06/05/25 14:43 Calcium 10.1 mg/dL (8.5-10.5) 06/05/25 14:43 Total Bilirubin 0.4 mg/dL (0.15-1.2) 06/05/25 14:43 AST 17 U/L (0-40) 06/05/25 14:43 ALT 32 U/L (0-41) 06/05/25 14:43 Alkaline Phosphatase 85 U/L (40-130) 06/05/25 14:43 Total Protein 8.2 g/dL (6.6-8.7) 06/05/25 14:43 Albumin 4.6 g/dL (3.5-5.2) 06/05/25 14:43 Globulin 3.6 g/dL (1.3-4.6) 06/05/25 14:43 Blood Type A Positive 06/05/25 15:17 Rho(D) Type Rh positive 06/05/25 15:17 No radiology studies performed this visit Critical Care Time Critical Care Time: Critical Care Time: Yes Total Critical Care Time: 35 Attestation: The high probability of a clinically significant, sudden or life threatening deterioration of the patient's hematology system(s) required my full and direct attention, intervention and personal management. The critical care time is as shown. This time is in addition to time spent performing any reported procedures but includes the following: [x] Data and vital sign review and interpretation [x] Patient assessment, examination and intervention [x] Documentation [x] Medication orders and management Discharge Plan Discharge Patient Disposition: Xfer Short-Term Hosp Clinical Impression: Thrombocytopenia Condition: Stable Referrals: Jennifer Farrell DO [Primary Care Provider, [facility]] Print Language: [place] Coding Level of Care Code ED Registered Public Surveyor for Manuel Lantigua
[2025-06-05 14:48] LABS: Hematocrit 42.5 % (37-53); Hemoglobin 14.80 g/dL (11.27-16.99); Mean Corpuscular HGB Conc 34.8 g/dL (30-55); Mean Corpuscular Hemoglobin 32.0 pg (27-33); Mean Corpuscular Volume 91.8 fl (82-101); Nucleated Red Blood Cells % 0 %; Red Blood Count 4.63 10^6/uL (3.85-5.65); White Blood Count 9.06 10^3/uL (3.29-11.43)
[2025-06-05 15:08] LABS: Slide Review Slide Review Perform
[2025-06-05 15:09] LABS: Platelet Count 1 10^3/cmm (157-399)
[2025-06-05 15:13] LABS: Alanine Aminotransferase 32 U/L (0-41); Albumin Level 4.6 g/dL (3.5-5.2); Alkaline Phosphatase 85 U/L (40-130); Anion Gap 18.3 (5-19); Aspartate Amino Transferase 17 U/L (0-40); Blood Urea Nitrogen 40 mg/dL (8-23); Calcium 10.1 mg/dL (8.5-10.5); Carbon Dioxide 19 mmol/L (22-29); Chloride 101 mmol/L (98-107); Globulin 3.6 g/dL (1.3-4.6); Glucose 179 mg/dL (65-115); INR 0.89 (0.8-1.2); Osmolality Calculated 292 mOsm/kg (285-295); Potassium 4.3 mmol/L (3.5-5.1); Prothrombin Time 12.70 SECONDS (12.1-14.9); Sodium 134 mmol/L (136-145); Total Protein 8.2 g/dL (6.6-8.7)
== END 2025-06-05 20:33 | disposition short-term general hospital (02) ==
PROVIDERS: Emergency Provider Emergency Medicine; PCP Family Medicine
DX: D69.6 Thrombocytopenia, unspecified (principal); E78.5 Hyperlipidemia, unspecified; E11.22 Type 2 diabetes mellitus with diabetic chronic kidney disease; I12.9 Hypertensive chronic kidney disease with stage 1 through stage 4 chronic kidney disease, or unspecified chronic kidney disease; N18.32 Chronic kidney disease, stage 3b
CPT/HCPCS: 36415; 80053; 85025; 85610; 86850; 86900; 99283

== ENCOUNTER → 2025-06-14 14:10 | Outpatient (BNVA) | payer MEDICARE, OTHER, SELFPAY | PROVIDERS: PCP Family Medicine; Visit Provider Family Medicine | DX: Z13.6 Encounter for screening for cardiovascular disorders (principal); D69.6 Thrombocytopenia, unspecified | CPT/HCPCS: 80503; 85025 ==

== ENCOUNTER 2025-06-27 13:07 | Oncology outpatient (recurring) (ONCR) | payer MEDICARE, OTHER, SELFPAY ==
[2025-06-27 14:07] LABS: Hematocrit 32.8 % (37-53); Hemoglobin 11.60 g/dL (11.27-16.99); Mean Corpuscular HGB Conc 35.4 g/dL (30-55); Mean Corpuscular Hemoglobin 32.2 pg (27-33); Mean Corpuscular Volume 91.1 fl (82-101); Nucleated Red Blood Cells % 0 %; Platelet Count 190 10^3/cmm (157-399); Red Blood Count 3.60 10^6/uL (3.85-5.65); White Blood Count 5.55 10^3/uL (3.29-11.43)
[2025-06-27 14:28] LABS: Alanine Aminotransferase 32 U/L (0-41); Albumin Level 4.5 g/dL (3.5-5.2); Alkaline Phosphatase 74 U/L (40-130); Anion Gap 15.4 (5-19); Aspartate Amino Transferase 24 U/L (0-40); Blood Urea Nitrogen 29 mg/dL (8-23); Calcium 10.4 mg/dL (8.5-10.5); Carbon Dioxide 27 mmol/L (22-29); Chloride 98 mmol/L (98-107); Creatinine Clr Calc Pharmacy 63.7954; Globulin 3.5 g/dL (1.3-4.6); Glucose 196 mg/dL (65-115); Osmolality Calculated 293 mOsm/kg (285-295); Potassium 4.4 mmol/L (3.5-5.1); Sodium 136 mmol/L (136-145); Total Protein 8.0 g/dL (6.6-8.7)
== END 2025-07-06 23:59 | disposition home or self-care (01) ==
PROVIDERS: PCP Family Medicine; Visit Provider Internal Medicine Medical Oncology
DX: D69.6 Thrombocytopenia, unspecified (principal); Z78.9 Other specified health status; D72.820 Lymphocytosis (symptomatic); D69.59 Other secondary thrombocytopenia; T50.905A Adverse effect of unspecified drugs, medicaments and biological substances, initial encounter; X58.XXXA Exposure to other specified factors, initial encounter
CPT/HCPCS: 36415; 80053; 85025; 99205